=== PATIENT | female | born 1995 | race Two or more races ===

== ENCOUNTER 2023-12-09 10:09 | Emergency (ER) | payer OTHER ==
[~2023-12-09] VITALS: Ht 157.5 cm; Wt 57.2 kg
[2023-12-09] MEDS ORDERED: KETOROLAC TROMETHAMINE 30 MG VIAL IM STA (11:58)
== END 2023-12-09 12:44 | disposition home or self-care (01) ==
LOC: ER 10:10
DX: N92.6 Irregular menstruation, unspecified (principal)

== ENCOUNTER 2024-05-05 14:09 | Emergency (ER) | payer OTHER ==
[~2024-05-05] VITALS: Ht 157.5 cm; Wt 57.6 kg
[2024-05-05] MEDS ORDERED: LANTUS SOL100 UNIT/1 (15:24)
[2024-05-05] MEDS ORDERED: HUMALOG100 UNIT/2 (15:24)
[2024-05-05] MEDS ORDERED: KETOROLAC TROMETHAMINE 60 MG VIAL IM ONE (16:30)
[2024-05-05] MEDS ORDERED: CEFTRIAXONE SODIUM 2,000 MG VIAL IM ONE (16:30)
[2024-05-05 17:04] LABS: HEMATOCRIT 39.4 % (36.0-45.00); HEMOGLOBIN 13.4 g/dL (12.0-15.00); MEAN CELL VOLUME 89.7 fL (80.00-100.00); MEAN CORPUSCULAR HEMOGLOBIN 30.6 pg (27.00-32.0); MEAN CORPUSCULAR HGB CONC 34.1 g/dl (32.0-36.0); PLATELET COUNT 249 K/uL (150-450); RED BLOOD COUNT 4.39 M/uL (4.00-6.00); RED CELL DISTRIBUTION WIDTH 13.1 % (11.5-14.5)
[2024-05-05 17:51] LABS: PH,URINE 6.5 (5.0-8.0); URINE APPEARANCE Cloudy; URINE BILIRRUBIN Negative (NEGATIVE); URINE BLOOD Negative; URINE COLOR Yellow; URINE LEUKOCYTE Small; URINE NITRATE Negative; URINE PROTEIN Negative (NEGATIVE); URINE UROBILINOGEN 0.2 E.U./dl
[2024-05-05 17:56] LABS: URINE RBC 6.8 uL (0.0-20.8); URINE WBC 254.1 uL (0.0-23.2)
[2024-05-05 18:31] LABS: URINE EPITHELIAL CELLS > 201.7 uL (0.0-38.8); URINE GLUCOSE >=1000 MG/DL (NEGATIVE)
[2024-05-05 20:11] LABS: ALBUMIN 3.7 gm/dL (3.4-5.0); BILIRUBIN TOTAL 0.28 mg/dL (0.3-1.2); CALCIUM 9.4 mg/dL (8.5-10.1); CREATININE SERUM 0.82 mg/dL (0.55-1.02); GFR 83.01; GLOBULINA 3.9 G/DL (2.4-3.5); POTASSIUM 3.87 mEq/L (3.5-5.1); TOTAL PROTEIN 7.6 gm/dL (6.4-8.2)
[2024-05-05] MEDS ORDERED: INSULIN REGULAR, HUMAN 1,000 UNIT/10 ML UNITS SUBCUTANEO ONE (20:30)
== END 2024-05-05 22:50 | disposition home or self-care (01) ==
LOC: ER 14:11
PROVIDERS: General Practice
DX: N39.0 Urinary tract infection, site not specified (principal); K59.00 Constipation, unspecified; E11.9 Type 2 diabetes mellitus without complications; Z79.4 Long term (current) use of insulin